=== PATIENT | female | born 1985 | race Hispanic/Latino ===

== ENCOUNTER 2017-12-19 11:26 | Day surgery (SDC) | payer OTHER ==
[2017-12-19] MEDS: LR 1,000 ML IV (11:55)
[2017-12-19 12:16] LABS: CONTROL LINE UCG INT CTR LINE PRESENT; URINE PREG TEST NEGATIVE (NEGATIVE)
[2017-12-19] MEDS ORDERED: dexameTHASONE 4 MG/ML 1ML VIAL (J1100) As Ordered (12:56)
[2017-12-19] MEDS ORDERED: LIDOCAINE 2% INJ 100 MG/5 ML SDV (FOR ANES.) As Ordered (12:56)
[2017-12-19] MEDS ORDERED: fentaNYL 250 MCG/5 ML INJECTION (J3010) As Ordered (12:56)
[2017-12-19] MEDS ORDERED: MIDAZOLAM INJ 2 MG/2 ML VIAL (J2250) As Ordered (12:56)
[2017-12-19] MEDS ORDERED: PROPOFOL 200 MG/20 ML VIAL As Ordered (12:56)
[2017-12-19] MEDS ORDERED: ONDANSETRON 4MG/2ML VIAL (J2405) As Ordered (12:56)
[2017-12-19] MEDS ORDERED: ROCURONIUM BROMIDE 50 MG/5 ML VIAL As Ordered ×2 (12:57)
[2017-12-19] MEDS ORDERED: SUGAMMADEX SODIUM 500 MG/5 ML VIAL (BRIDION) As Ordered (13:05)
[2017-12-19] MEDS ORDERED: PHENYLephrine HCL 500 MCG/5 ML (100MCG/ML) SYRINGE (J2370) As Ordered (13:11)
[2017-12-19] MEDS ORDERED: ePHEDrine SULFATE 25 MG/5 ML(5MG/ML) SYRINGE As Ordered (13:19)
[2017-12-19] MEDS: LIDOCAINE W/EPINEPHRINE 1% 20ML VIAL As Ordered (13:25)
[2017-12-19] MEDS: METHYLENE BLUE 0.5% (5MG/ML) 10 ML AMP (PROVAYBLUE)(Q9968 PER 1MG) As Ordered (13:25)
[2017-12-19] MEDS: EPINEPHrine 1MG/ML INJ 30ML MD-VIAL As Ordered (13:25)
[2017-12-19] MEDS ORDERED: PERCOCET 5MG/325MG TAB As Ordered (13:57)
[2017-12-19] MEDS: PERCOCET 5MG/325MG TAB PO ×2 (13:59→14:41)
[2017-12-19] MEDS ORDERED: LR 1,000 ML IV ×2 (14:15)
[2017-12-19] MEDS ORDERED: fentaNYL 100 MCG/2 ML INJECTION (J3010) IV (14:15)
[2017-12-19] MEDS ORDERED: ACETAMINOPH W/CODEINE #3 TAB UD PO (14:15)
[2017-12-19] MEDS ORDERED: ONDANSETRON 4MG/2ML VIAL (J2405) IV (14:15)
== END 2017-12-19 15:11 | disposition home or self-care (01) ==
LOC: M SDC 11:26
DX: J34.2 Deviated nasal septum (principal); J31.0 Chronic rhinitis; F32.9 Major depressive disorder, single episode, unspecified; Z79.899 Other long term (current) drug therapy; Z72.0 Tobacco use; Z97.5 Presence of (intrauterine) contraceptive device; Z86.69 Personal history of other diseases of the nervous system and sense organs
CPT/HCPCS: 30520

== ENCOUNTER 2020-11-15 10:52 | Emergency (ER) | payer OTHER ==
[~2020-11-15] VITALS: Ht 154.9 cm; Wt 70.3 kg
[~2020-11-15 10:52] MED LIST: CYMB1CAP4 PO; CYMB60CA3 PO; TRAZ-257 PO
[2020-11-15] MEDS ORDERED: DULO1CAP4 (11:21)
[2020-11-15] MEDS ORDERED: BUPR15TA (11:21)
[2020-11-15 14:03] LABS: BASO % 0.6 % (0.0-1.0); EOS # 0.1 10^3/uL (0.0-0.5); EOS % 1.6 % (0.0-3.0); HEMATOCRIT 39.5 % (36.0-47.0); HEMOGLOBIN 13.6 g/dl (12.0-15.5); LYMPH # 1.6 10^3/uL (1.5-5.0); MEAN CORPUSCULAR HEMOGLOBIN 30.4 pg (27.0-33.0); MEAN CORPUSCULAR HGB CONC 34.4 g/dl (32.0-36.5); MEAN CORPUSCULAR VOLUME 88.2 fl (80.0-96.0); MONO # 0.5 10^3/uL (0.0-0.8); MONO % 6.4 % (2.0-8.0); NEUTROPHILS # 4.9 10^3/uL (1.5-8.5); NEUTROPHILS % 69.1 % (36.0-66.0); PLATELET COUNT, AUTOMATED 237 10^3/uL (150-450); RED BLOOD COUNT 4.48 10^6/uL (4.00-5.40); WHITE BLOOD COUNT 7.1 10^3/uL (4.0-10.0)
[2020-11-15 14:45] LABS: ACETAMINOPHEN LEVEL < 2.0 UG/ML (10.0-30.0); ALBUMIN 3.8 GM/DL (3.2-5.2); ALT/SGPT 25 U/L (12-78); BILIRUBIN,DIRECT 0.1 MG/DL (0.0-0.2); BILIRUBIN,TOTAL 0.3 MG/DL (0.2-1.0); ETHYL ALCOHOL (ETHANOL) < 0.003 % (0.000-0.010); TOTAL PROTEIN 6.9 GM/DL (6.4-8.2)
[2020-11-15] MEDS ORDERED: KETOROLAC 60MG 2ML VIAL IM ONE (15:15)
[2020-11-15 15:57] VITALS: BP 110/63
--- NOTE | 2020-11-15 16:07 | REP ---
INDICATION: pelvic. COMPARISON: None. TECHNIQUE: Transabdominal and transvaginal scanning were performed. FINDINGS: Uterine dimensions are normal at 8.2 x 3.8 x 4.6 cm. Endometrial echo contains the IUD centrally placed in the endometrium.. Minimal free fluid is seen in the cul-de-sac. Visualized bladder barcenas are smooth. The right ovary has dimensions of 3.0 x 2.7 x 2.0 cm. It's Doppler flow is normal with a resistive index of 0.41. The left ovary is not seen due to bowel gas. No left adnexal mass, cyst or free fluid.. IMPRESSION: Unremarkable pelvic sonography. IUD noted in good position in the uterus. Left ovary not sonographically visualized. Normal right ovary. Tiny sliver of cul-de-sac fluid.. <Electronically signed by Zbigniew Durán > 11/15/20 1974
[2020-11-15] MEDS ORDERED: KETO10TAB PO (16:18)
[2020-11-15] MEDS ORDERED: METH-1164 PO (16:19)
== END 2020-11-15 16:38 | disposition home or self-care (01) ==
LOC: M ED 10:52
DX: M54.9 Dorsalgia, unspecified (principal); G89.29 Other chronic pain; R10.2 Pelvic and perineal pain; Z97.5 Presence of (intrauterine) contraceptive device
CPT/HCPCS: 76830; 76856; 80047; 80076; 80143; 81001; 82077; 84702; 85025; 93976; 96372; 99283; J1885